=== PATIENT | female | born 1955 | race Caucasian/White ===

== ENCOUNTER 2016-12-28 17:16 | Emergency (ER) | payer OTHER ==
[~2016-12-28] VITALS: Ht 157.5 cm; Wt 91.6 kg
[~2016-12-28 17:16] MED LIST: ALPRAZOLAM0.5 MG PO; AMARYL1 MG PO; AMLOD-VALSA-HC1 EAC4 PO; ASPIRIN325 MG PO; ATORVASTATIN CA20 MG PO; COZAAR100 MG PO; CYMBALTA60 MG PO; DULOXETINE HCL60 MG PO; GLIMEPIRIDE1 MG PO; GLUCOPHAGE1000 MG PO; HYDROCHLOROTHIA25 MG PO; HYDROCODON-ACE1 EAC7 PO; JANUMET 50/11 TABLET PO; JANUVIA100 MG PO; KEFLEX500 MG PO; LAMOTRIGINE100 MG PO; MEVACOR20 MG PO; NORVASC10 MG PO; TRAZODONE HCL50 MG PO
[2016-12-28 19:18] LABS: HEMATOCRIT 32.7 % (36.0-46.0); MCH 23.6 PG (29.0-34.0); MCHC 30.6 G/DL (30.0-36.0); MCV 77.1 FL (83-99); MEAN PLAT.VOLUME 10.3 uM^3 (9.5-12.4); PLATELET COUNT 180 K/uL (156-360); RBC DIS.WIDTH-CV 15.4 % (11.8-14.6); RBC DIS.WIDTH-SD 42.5 % (39-53); RED BLOOD COUNT 4.24 M/uL (3.80-5.20); WHITE BLOOD COUNT 5.4 K/uL (4.1-10.2)
[2016-12-28 19:37] LABS: CHLORIDE 105 mEq/L (99-109); POTASSIUM 3.9 mEq/L (3.7-5.4); SODIUM 139 mEq/L (136-147)
[2016-12-28 19:38] LABS: GLUCOSE 90 mg/dL (70-99)
[2016-12-28 19:40] LABS: ANION GAP 10 MEQ/L (2-14)
[2016-12-28 19:42] LABS: GFR ESTIMATE (CALCULATED) > 59 mL/min/
[2016-12-28 19:43] LABS: UREA NITROGEN (BUN) 16 mg/dL (9-23)
[2016-12-28] MEDS ORDERED: PERCOCET 5/31 TABLET PO (22:17)
[2016-12-28] MEDS ORDERED: VALIUM5 MG PO (22:17)
[2016-12-28 23:08] VITALS: BP 120/55
== END 2016-12-28 23:20 | disposition home or self-care (01) ==
LOC: EME 17:16
PROVIDERS: Emergency Medicine
DX: M54.5 Low back pain (principal); W01.0XXA Fall on same level from slipping, tripping and stumbling without subsequent striking against object, initial encounter; K21.9 Gastro-esophageal reflux disease without esophagitis; E11.9 Type 2 diabetes mellitus without complications; I10 Essential (primary) hypertension; Z86.73 Personal history of transient ischemic attack (TIA), and cerebral infarction without residual deficits
CPT/HCPCS: 72131; 80048; 85027; 99281; 99284; J3010

== ENCOUNTER 2017-02-18 12:06 | Inpatient (IN) | payer OTHER ==
[~2017-02-18] VITALS: Ht 157.5 cm; Wt 87.6 kg
[~2017-02-18 12:06] MED LIST changes: +B-COMPLEX-VITA1 EACH PO; +DAILY VITE1 EAC1 PO; +LORTAB 5-325 M1 EACH PO; +PERCOCET 5/31 TABLET PO; +VALIUM5 MG PO; +XANAX0.5 MG PO
[2017-02-18 12:30] VITALS: BP 127/58
[2017-02-18 12:42] LABS: POINT-OF-CARE METER ID UU13113694
[2017-02-18 16:50] LABS: POINT-OF-CARE METER ID UU13113675; POINT-OF-CARE USER ID 515036437
[2017-02-18 19:18] VITALS: BP 117/57
[2017-02-18 23:36] VITALS: BP 126/56
[2017-02-19 03:05] VITALS: BP 132/65
[2017-02-19 07:10] VITALS: BP 134/63
[2017-02-19 12:00] VITALS: BP 115/55
[2017-02-19 14:55] VITALS: BP 132/59
[2017-02-19 19:38] VITALS: BP 111/53
[2017-02-20 00:03] VITALS: BP 114/56
[2017-02-20 03:33] VITALS: BP 131/63
[2017-02-20 07:28] VITALS: BP 144/66
[2017-02-20 16:50] VITALS: BP 120/59
[2017-02-20 23:33] VITALS: BP 128/60
[2017-02-21 08:10] VITALS: BP 130/63
[2017-02-21 16:47] VITALS: BP 111/55
[2017-02-21 23:58] VITALS: BP 132/62
[2017-02-22 08:00] VITALS: BP 140/66
[2017-02-22 17:01] VITALS: BP 138/62
[2017-02-23 00:21] VITALS: BP 131/62
[2017-02-23 07:55] VITALS: BP 134/61
[2017-02-23 15:15] VITALS: BP 121/55
[2017-02-23] MEDS ORDERED: LORTAB 5-325 M1 EACH PO (15:29)
[2017-02-23] MEDS ORDERED: LYRICA75 MG PO (15:29)
[2017-02-23] MEDS ORDERED: CYCLOBENZAPRINE10 MG PO (15:29)
[2017-02-23 23:36] VITALS: BP 133/63
[2017-02-24 06:50] VITALS: BP 135/61
[2017-02-24 15:48] VITALS: BP 135/61
== END 2017-02-24 18:52 | DRG 519 ==
LOC: SDC 12:06 → 2SOUTH 16:16 → 2EASTP 16:16 → ENRESERV 17:07 → 2EASTP 19:19
PROVIDERS: Neurological Surgery
PROC: 00NW0ZZ Release Cervical Spinal Cord, Open Approach (ICD-10-PCS; principal; 2017-02-18)
DX: M48.02 Spinal stenosis, cervical region (principal); G95.9 Disease of spinal cord, unspecified; E11.40 Type 2 diabetes mellitus with diabetic neuropathy, unspecified; N99.89 Other postprocedural complications and disorders of genitourinary system; R33.8 Other retention of urine; I10 Essential (primary) hypertension; K59.00 Constipation, unspecified; R26.89 Other abnormalities of gait and mobility; G89.29 Other chronic pain; E78.5 Hyperlipidemia, unspecified; Z86.73 Personal history of transient ischemic attack (TIA), and cerebral infarction without residual deficits; Z68.35 Body mass index [BMI] 35.0-35.9, adult; Z98.1 Arthrodesis status
CPT/HCPCS: 72020; 76000; 82948; 86900; 86901; 95938; 97530 GO; J0131; J0330; J0690; J1170; J1885; J2250; J2270; J2405; J2710; J3010; J3370; J3480

== ENCOUNTER 2017-07-07 05:48 | Day surgery (SDC) | payer OTHER ==
[~2017-07-07] VITALS: Ht 157.5 cm; Wt 95.0 kg
[~2017-07-07 05:48] MED LIST changes: +CYCLOBENZAPRINE10 MG PO; +LYRICA75 MG PO
[2017-07-07 06:36] VITALS: BP 167/71
[2017-07-07 06:47] LABS: POINT-OF-CARE METER ID UU14174212
[2017-07-07 09:57] LABS: POINT-OF-CARE METER ID UU13113675
[2017-07-07 12:18] VITALS: BP 106/53
[2017-07-07 16:30] VITALS: BP 115/68
[2017-07-07 16:43] LABS: POINT-OF-CARE METER ID UU14149397
[2017-07-07 23:52] VITALS: BP 122/60
[2017-07-08 04:27] VITALS: BP 117/59
[2017-07-08 08:15] VITALS: BP 116/56
[2017-07-08] MEDS ORDERED: HYDROCODON-ACE1 EAC7 PO (08:23)
[2017-07-08 11:30] VITALS: BP 118/62
[2017-07-08 15:39] VITALS: BP 124/56
[2017-07-08 23:19] VITALS: BP 136/60
[2017-07-09 07:27] VITALS: BP 135/62
== END 2017-07-09 12:54 | disposition home or self-care (01) ==
LOC: SDC 05:48 → 3EAST 09:23 → 2SOUTH 09:23 → ENRESERV 10:26 → CANRESERV 10:26 → ENRESERV 10:38 → SDC 11:39 → 3EAST 12:06
PROVIDERS: Neurological Surgery
DX: M48.061 Spinal stenosis, lumbar region without neurogenic claudication (principal); M51.26 Other intervertebral disc displacement, lumbar region; Z98.1 Arthrodesis status; I10 Essential (primary) hypertension; K21.9 Gastro-esophageal reflux disease without esophagitis; E78.01 Familial hypercholesterolemia; E11.9 Type 2 diabetes mellitus without complications; Z79.82 Long term (current) use of aspirin; Z79.84 Long term (current) use of oral hypoglycemic drugs; Z86.73 Personal history of transient ischemic attack (TIA), and cerebral infarction without residual deficits
CPT/HCPCS: 72020; 76000; 82948; G0378; G8978 GP CI; G8979 GP CH; G8980 GP CI; G8987 GO CI; G8988 CI; G8989 GO CI; J0131; J0690; J1100; J1170; J1885; J2250; J2405; J2710; J3010; J3370; J3480; J7120